=== PATIENT | male | born 1980 | race Two or more races ===

== ENCOUNTER 2016-10-27 08:59 | Emergency (ER) | payer SELFPAY ==
[~2016-10-27] VITALS: Ht 165.1 cm; Wt 65.8 kg
[2016-10-27] MEDS ORDERED: IV NS 0.9% 1,000 ML BAG IV ONE (09:30)
[2016-10-27] MEDS ORDERED: Thiamine 100 MG in IV D5W 50 ML IV SCH (09:30)
[2016-10-27 09:33] LABS: BASOPHILS # (AUTO) 0.1 /CMM (0.0-0.2); BASOPHILS % (AUTO) 0.9 % (0.0-2.0); DIFF TOTAL % 100 %; EOSINOPHILS # (AUTO) 0.2 /CMM (0.0-0.7); EOSINOPHILS % (AUTO) 2.2 % (0.0-6.0); HEMATOCRIT 45 % (39-51); HEMOGLOBIN 14.8 g/dL (13.5-17.5); LYMPHOCYTES # (AUTO) 2.9 /CMM (0.8-4.8); LYMPHOCYTES % (AUTO) 37.2 % (20.0-44.0); MEAN CORPUSCULAR HEMOGLOBIN 32 PG (26.0-33.0); MEAN CORPUSCULAR HGB CONC 33 g/dl (31.0-36.0); MEAN CORPUSCULAR VOLUME 96 fL (80-96); MONOCYTES # (AUTO) 0.9 /CMM (0.1-1.30); MONOCYTES % (AUTO) 11.4 % (2.0-12.0); NEUTROPHILS # (AUTO) 3.8 /CMM (1.8-8.9); NEUTROPHILS % (AUTO) 48.3 % (43.0-81.0); PLATELET COUNT (AUTO) 253 /CMM (150-450); RED BLOOD CELL COUNT(AUTO) 4.63 MIL/uL (4.5-6.0); WHITE BLOOD COUNT (AUTO) 7.9 K/uL (4.3-11.0)
[2016-10-27] MEDS ORDERED: SECONDARY IV SET 1 EA INFUS.SET MC ONE (09:47)
[2016-10-27] MEDS ORDERED: IV NS 0.9% 1,000 ML ONE (09:47)
[2016-10-27] MEDS ORDERED: IV SET PRIMARY 1 EA INFUS.SET MC ONE (09:47)
[2016-10-27 09:48] LABS: CALCIUM, SERUM 8.9 mg/dL (8.5-10.1); CREATININE 0.8 mg/dL (0.6-1.3); POTASSIUM 3.6 mmol/L (3.5-5.1)
[2016-10-27 09:55] LABS: ALBUMIN 4.6 g/dL (3.4-5.0); BILIRUBIN,DIRECT 0.1 mg/dL (0.0-0.2); BILIRUBIN,TOTAL 0.3 mg/dL (0.2-1.0); INDIRECT BILIRUBIN 0.2 mg/dL (0.0-1.1); TOTAL PROTEIN, SERUM 8.7 g/dL (6.4-8.2)
[2016-10-27 09:56] LABS: SALICYLATE 1.1 mg/dL (2.8-20.0)
[2016-10-27 13:27] VITALS: BP 138/64
== END 2016-10-27 13:28 | disposition home or self-care (01) ==
LOC: ER 09:01
DX: R41.82 Altered mental status, unspecified (principal); F10.129 Alcohol abuse with intoxication, unspecified
CPT/HCPCS: 36415; 80048; 80076; 85025; 96361; 96365; 99284; A4606; G0480; G0481; G0482; J3411; J7030; J7060; Z7610; G6038-TC; G6039-TC; G6040-TC